=== PATIENT | male | born 1960 | race Caucasian/White ===

== ENCOUNTER → 2023-06-10 06:32 | Day surgery (SDC) | payer OTHER, SELFPAY | LOC: GI 06:32 | PROVIDERS: ATTENDING PHYSICIAN Internal Medicine Gastroenterology | DX: R12 Heartburn (principal); K22.89 Other specified disease of esophagus; K20.80 Other esophagitis without bleeding; Z80.0 Family history of malignant neoplasm of digestive organs | CPT/HCPCS: 43239; 88305 ==

== ENCOUNTER 2023-09-26 21:24 | Emergency (ER) | payer OTHER, SELFPAY ==
[2023-09-26 21:26] VITALS: BP 184/108
--- NOTE | 2023-09-26 21:31 | ED.GENMED ---
History of Present Illness
General
Chief Complaint: Blood Pressure Problem
Time Seen by Provider: 09/26/23 21:31
Travel History
Have you had any contact with someone who has COVID-19?: No
Do you have any symptoms of coronavirus? Fever > 100 degrees, chills, cough, shortness of breath, sore throat, loss of taste or smell, muscle aches, or headache?: No
History of Present Illness
History of Present Illness:
HPI: Patient presents due to blood pressure concerns. At home reading was 170/110 and felt palpitations/heart pounding sensation. He also has a vague chest pressure sensation as well but also relates history of feeling anxiety. He had been taking
ketamine 120 mg orally but then more recently wanted to come off of this (takes this for PTSD). He was weaning himself off the ketamine by taking the medication every other day and then once every 2 days but then started having concerns with high
blood pressure readings and then switch to taking a little more gradual taper. He is compliant with taking Xanax at nighttime to help sleep in addition to trazodone. He has not run out of benzos.
EXAM:
GENERAL: Well appearing in no distress, he is hypertensive
HEENT: Moist oral mucosa
CARDIOVASCULAR: No murmurs, normal heart rate, regular rhythm, No chest wall tenderness
PULMONARY: No respiratory distress, breath sounds are clear and equal
ABDOMEN: Soft with no peritoneal signs, no tenderness
NEUROLOGIC: Excellent strength all extremities, no coordination deficits
PSYCHIATRIC: Appropriate mental status, normal insight and judgement, appears slightly anxious
EXTREMITIES: Nontender, no edema, moves all extremities equally
SKIN: No rash, no lesions
TIME OF INITIAL ENCOUNTER: 9:45 PM
NUMBER AND COMPLEXITY OF PROBLEMS ADDRESSED AT THE ENCOUNTER
� Chronic conditions affecting care: PTSD, GERD, rosacea
� Acute Exacerbation and/or Progression of Chronic Illness: This is an acute problem
� Differential Diagnosis includes: New onset hypertension, high blood pressure related to withdrawal
AMOUNT AND/OR COMPLEXITY OF DATA TO BE REVIEWED AND ANALYZED
� I performed an independent evaluation of and my interpretation is:
EKG: Sinus 55, normal axis, right bundle branch block, no old EKG to compare
CT:
X-rays:
Laboratory Studies: CBC and chemistries unremarkable, troponin normal, mag 2.1
Other:
� Review of other/old records: I reviewed records, the patient had endoscopy in May
� Clinical information was obtained by an independent historian: I spoke to at bedside
� Prescriptions/Medications Considered but not given:
� Further testing considered but not performed:
RISK OF COMPLICATIONS AND/OR MORBIDITY OR MORTALITY OF PATIENT MANAGEMENT
� Social determinants of health affecting care: Lives at home
� Discussion with other providers:
� Escalation of care including admission/observation vs risk of discharge considered: The blood pressure may be related to a combination of ketamine withdrawal as well as anxiety. His blood pressure here is confirmed to be
elevated similar to what has been like over the past 4 days. Since he did have several days of markedly elevated blood pressures, we talked about starting oral medication. Repeat blood pressure spontaneously slightly improved down to 157/100.
Phy Exam
Physical Exam
Physical Exam:
See HPI
Course
Orders/Labs/Results
Orders:
Orders
09/26/23 21:49
Electrocardiogram (*1) Urgent
Reason for Study: Chest Pain
EKG- Treatment ONCE
09/26/23 21:51
Basic Metabolic Panel Urgent
Complete Blood Count/With Diff Urgent
Magnesium Urgent
Troponin I Urgent
09/26/23 23:17
Losartan [Cozaar] 25 mg PO NOW STA
Abnormal Lab Results
09/26/23
21:51
RBC 4.54 L 10^6/uL
(4.70-6.10)
MCV 94.3 H fL
(80.0-94.0)
MCH 31.9 H pg
(27.0-31.0)
Monocytes % 11.7 H %
(1.7-9.3)
Carbon Dioxide 31 H mmol/L
(22-30)
BUN 21 H mg/dl
(9-20)
09/26/23 21:51
09/26/23 21:51
Vital Signs
Initial and Last Documented VS:
Initial Vital Signs
Temp Pulse Resp BP Pulse Ox
98.9 F 60 24 184/108 100
09/26/23 21:26 09/26/23 21:26 09/26/23 21:26 09/26/23 21:26 09/26/23 21:26
Last Documented Vital Signs
Temp Pulse Resp BP Pulse Ox
98.9 F 54 15 157/100 97
09/26/23 21:26 09/26/23 23:15 09/26/23 23:15 09/26/23 23:00 09/26/23 23:15
*Critical Care Note
Total Time (30-74mins, 75-104mins- exclusive of procedures): Not Applicable
ED Attending Note
-
Portions of this chart may have been created with voice recognition software.� Occasional wrong word or��sound alike� substitutions may have occurred due to the inherent limitations of voice recognition software.
Discharge Plan
Departure
Patient Disposition: Home (Routine Discharge)
Date of Disposition: 09/26/23
Time of Disposition: 23:18
Patient with high blood pressure during this ER visit?: Yes
Discharge Problem:
High blood pressure
Instructions: High Blood Pressure (DC), BLOOD PRESSURE
Prescriptions:
New
losartan 25 mg tablet
25 mg PO DAILY Qty: 30 0RF
No Action
multivitamin Tablet
1 tab PO DAILY
trazodone 50 mg Tablet
50 mg PO HS
sertraline 100 mg Tablet
100 mg PO DAILY
omeprazole 40 mg Capsule,Delayed Release(Dr/Ec)
40 mg PO DAILY
alprazolam 0.5 mg Tablet
0.5 mg PO HS
loratadine 10 mg Tablet
10 mg PO DAILY
omega 6-rgx-lan-fish oil [Fish Oil] 1,200 (144-216) mg Capsule
2,400 cap PO DAILY
ketamine 100 mg Jessica
50 mg SUBLINGUAL DAILY
Referrals:
Aury Vidal CRNP [Family Provider] -
Activity Restrictions/Additional Instructions:
I recommend that you speak to your prescribing physician regarding weaning off the ketamine. In the meantime, I have started you on losartan 25 mg�this is the lowest dose. If after a week your symptoms persist you could double up on the dose by
taking 2 pills at a time. Follow-up your primary care doctor. Return here if worse. CBC, chemistries, and troponin are all unremarkable.
Interventions
Interventions:
*Risk Screen - Suicide Last Done: 09/26/23 21:26
*Neglect/Abuse Screening Last Done: 09/26/23 21:26
ED- Fall Risk Assessment Last Done: 09/26/23 22:21
ED- Cardiac Assessment Last Done: 09/26/23 22:21
ED- Neurological Assessment Last Done: 09/26/23 22:21
ED- Pulmonary Assessment Last Done: 09/26/23 22:21
Discharge Date and Time
Print Language: [place]
[2023-09-26 22:03] VITALS: BP 164/106
[2023-09-26 22:10] LABS: % Basophils 1.6 % (0-2); % Immature Granulocytes 0.2 % (0-0.5); % Lymphocytes 29.6 % (20.5-51.1); % Monocytes 11.7 % (1.7-9.3); % Neutrophils 55.9 % (42.2-75.2); Absolute Basophils 0.1 10^3/uL (0-0.2); Absolute Eosinophils 0.1 10^3/uL (0-0.7); Absolute Lymphocytes 1.4 10^3/uL (1.2-3.4); Absolute Monocytes 0.6 10^3/uL (0.1-0.6); Absolute Neutrophils 2.7 10^3/uL (1.4-6.5); Hematocrit 42.8 % (39.0-52.0); Hemoglobin 14.5 g/dL (13.0-18.0); Mean Corp Hgb Conc. 33.9 g/dL (33.0-37.0); Mean Corpuscular Hgb 31.9 pg (27.0-31.0); Mean Corpuscular Volume 94.3 fL (80.0-94.0); Mean Platelet Volume 8.2 fL (7.4-10.4); Nucleated Red Blood Cells % 0 % (-); Platelet Count 196 10^3/uL (130-400); Red Blood Cell Count 4.54 10^6/uL (4.70-6.10); Red Cell Dist. Width 13.1 % (11.5-14.5); White Blood Cell Count 4.9 10^3/uL (4.8-10.8)
[2023-09-26 22:11] VITALS: BP 164/100
[2023-09-26 22:28] LABS: Blood Urea Nitrogen 21 mg/dl (9-20); Calcium 9.6 mg/dl (8.4-10.2); Carbon Dioxide 31 mmol/L (22-30); Chloride 99 mmol/L (98-107); Glucose 93 mg/dl (70-99); Magnesium 2.1 mg/dl (1.6-2.3); Sodium 138 mmol/L (135-145); eGFR > 60.00
[2023-09-26 22:36] LABS: Troponin I < 0.012 ng/ml
[2023-09-26 23:00] VITALS: BP 157/100
[2023-09-26] MEDS: COZAAR 25 MG PO (23:22)
== END 2023-09-26 23:57 | disposition home or self-care (01) ==
LOC: EMR 21:24
PROVIDERS: EMERGENCY PHYSICIAN Emergency Medicine; FAMILY PHYSICIAN Nurse Practitioner
DX: I10 Essential (primary) hypertension (principal); R00.2 Palpitations; R07.89 Other chest pain; F43.10 Post-traumatic stress disorder, unspecified; I45.10 Unspecified right bundle-branch block; Z88.1 Allergy status to other antibiotic agents; Z88.0 Allergy status to penicillin; Z88.8 Allergy status to other drugs, medicaments and biological substances
CPT/HCPCS: 99283; 80048; 83735; 84484; 85025; 93005

== ENCOUNTER → 2023-10-19 10:06 | Outpatient (REF) | payer OTHER, SELFPAY | LOC: RCS 10:06 | PROVIDERS: ATTENDING PHYSICIAN Nurse Practitioner | DX: I10 Essential (primary) hypertension (principal); I45.10 Unspecified right bundle-branch block | CPT/HCPCS: 93306 ==

== ENCOUNTER → 2025-02-19 09:06 | Outpatient (REF) | payer OTHER, SELFPAY | LOC: RAD 09:06 | PROVIDERS: ATTENDING PHYSICIAN Internal Medicine Gastroenterology; FAMILY PHYSICIAN Internal Medicine; OTHER PHYSICIAN Internal Medicine Gastroenterology | DX: K21.9 Gastro-esophageal reflux disease without esophagitis (principal) | CPT/HCPCS: 74221 ==